=== PATIENT | male | born 1935 | race Caucasian/White ===

== ENCOUNTER 2016-11-28 05:39 | Inpatient (IN) ==
[2016-11-21 10:46] LABS: Partial Thromboplastin Time 24.9 SECS (0-40)
[2016-11-21 10:58] LABS: Apearance,Urine CLEAR (Clear); Bilirubin,Urine Negative (Negative); Blood, Urine Negative (Negative); Glucose,Urine (UA) >=500 mg/dL (Negative); Hyaline Casts,Urine 9 /LPF (0-3); Ketones,Urine Negative (Negative); Nitrite,Urine Negative (Negative); Protein,Urine Negative; RBC,Urine <1 /HPF (0-4); Squamous Epithelial Cell,Urine Occasional /HPF (0-10); Urine Color Yellow (Yellow); Urine Specific Gravity 1.016 (1.001-1.035); Urine Urobilinogen < 2.0 EU/DL (0.2-1.0); WBC,Urine 1 /HPF (0-6)
[2016-11-28] MEDS ORDERED: VANCOMYCIN 1,000 MG VIAL ONE (05:59)
[2016-11-28] MEDS ORDERED: VANCOMYCIN INJ 1,000 MG in SODIUM CHLORIDE 0.9% 250 ML IV ONE (06:00)
[2016-11-28] MEDS ORDERED: ceFAZolin 1,000 MG VIAL ONE (06:00)
[2016-11-28] MEDS ORDERED: SODIUM CHLORIDE 0.9% 50 ML IV ONE (06:00)
[2016-11-28] MEDS: LACTATED RINGERS 1,000 ML IV SCH (06:30)
[2016-11-28] MEDS ORDERED: TRANEXAMIC ACID 1,000 MG/10 ML VIAL IV ONE (06:31)
[2016-11-28] MEDS ORDERED: ONDANSETRON 4 MG/2 ML VIAL ONE ×2 (07:09→08:57)
[2016-11-28] MEDS ORDERED: PROPOFOL 200 MG/20 ML VIAL IV ONE (07:09)
[2016-11-28] MEDS ORDERED: LIDOCAINE 1% 5 ML VIAL ONE (07:09)
[2016-11-28] MEDS ORDERED: NALOXONE 0.4 MG/ML VIAL IV PRN (07:14)
[2016-11-28] MEDS ORDERED: PROMETHAZINE 25 MG/1 ML VIAL IM PRN (07:14)
[2016-11-28] MEDS ORDERED: ONDANSETRON 4 MG/2 ML VIAL IV PRN ×2 (07:14→09:05)
[2016-11-28] MEDS ORDERED: diphenhydrAMINE CAP 25 MG CAPSULE PO PRN (07:14)
[2016-11-28] MEDS ORDERED: BISACODYL 10 MG SUPP RECTAL PRN (07:14)
[2016-11-28] MEDS ORDERED: TEMAZEPAM 7.5 MG CAPSULE PO PRN (07:14)
[2016-11-28] MEDS ORDERED: MAGNESIUM HYDROXIDE SUSP 30 ML UDCUP PO PRN (07:14)
[2016-11-28] MEDS ORDERED: LACTULOSE 20 GM/30 ML UDCUP PO PRN (07:14)
[2016-11-28] MEDS ORDERED: HYDROmorphone 2 MG/1 ML VIAL IV PRN (07:14)
[2016-11-28] MEDS ORDERED: DEXTROSE 50% 25 GM/50 ML VIAL IV PRN (07:18)
[2016-11-28] MEDS ORDERED: GLUCAGON 1 MG VIAL IM PRN (07:18)
[2016-11-28] MEDS ORDERED: ROPIVACAINE 0.5% 30 ML VIAL ONE (08:40)
[2016-11-28] MEDS ORDERED: HYDROmorphone 2 MG/1 ML VIAL ONE (08:57)
[2016-11-28] MEDS ORDERED: SEVOFLURANE 1 UNIT/15 MINUTE INH ONE ×2 (09:00→09:12)
[2016-11-28] MEDS: HYDROmorphone 2 MG/1 ML VIAL IV PRN ×2 (09:05→09:10)
[2016-11-28] MEDS ORDERED: fentaNYL 100 MCG/2 ML VIAL ONE (09:12)
[2016-11-28] MEDS ORDERED: MIDAZOLAM 2 MG/2 ML VIAL ONE (09:12)
[2016-11-28] MEDS ORDERED: LACTATED RINGERS 1,000 ML IV ONE (09:13)
[2016-11-28] MEDS ORDERED: SODIUM CHLORIDE 0.9% 100 ML IV ONE (09:13)
[2016-11-28] MEDS ORDERED: ACETAMINOPHEN 1,000 MG/100 ML VIAL IV ONE (09:13)
[2016-11-28] MEDS ORDERED: ePHEDrine 50 MG/ML AMP ONE (09:13)
[2016-11-28] MEDS: HYDROmorphone PCA 30 MG/30 ML SYRINGE IV SCH (11:10)
[2016-11-28] MEDS: DOCUSATE SODIUM 100 MG CAPSULE PO SCH ×2 (11:46→20:54)
[2016-11-28] MEDS: OMEGA PO SCH ×2 (11:48→20:54)
[2016-11-28] MEDS: INSULIN NPH/REGULAR 70/30 100 UNIT/ML SUBCUT SCH (11:48)
[2016-11-28] MEDS: FATTY ACIDS PO SCH ×2 (11:48→20:54)
[2016-11-28] MEDS: Magnesium Oxide [Magnesium] 250 MG PO SCH ×2 (11:48→20:51)
[2016-11-28] MEDS: CYANOCOBALAMIN 500 MCG TABLET PO SCH ×2 (11:49→20:49)
[2016-11-28] MEDS: LISINOPRIL 20 MG TABLET PO SCH ×2 (11:57→20:50)
[2016-11-28] MEDS: INSULIN REGULAR 100 UNIT/ML SUBCUT SCH ×4 (12:15→20:56)
[2016-11-28] MEDS: ceFAZolin 2,000 MG in PREMIX 1 EACH IV SCH ×2 (15:43→23:31)
[2016-11-28] MEDS: FONDAPARINUX 2.5 MG/0.5 ML SYRINGE SUBCUT SCH (17:18)
[2016-11-28] MEDS: INSULIN ASPART PROTAMINE/ASPART 70/30 100 UNIT/ML SUBCUT SCH (19:24)
[2016-11-28] MEDS: ATORVASTATIN 10 MG TABLET PO SCH (20:50)
[2016-11-29 03:40] LABS: Basophils # 0.1 10*3/uL (0.0-0.2); Basophils % 0.6 % (0.0-0.8); Eosinophils % 0.4 % (0.00-10.9); Hematocrit 27.5 VOL% (42.0-52.0); Hemoglobin 8.4 GM/DL (14.0-18.0); Immature Granulocytes % 0.4 %; Immature Granulocytes Absolute 0.04 #; Lymphocytes # 2.1 10*3/uL (1.4-4.0); Lymphocytes % 19.4 % (21.2-54.2); Mean Corpuscular HGB Conc 30.5 GM/DL (32-36); Mean Corpuscular Hemoglobin 25 PG (27-34); Mean Corpuscular Volume 80.2 FL (87-102); Mean Platelet Volume 11.8 FL (9.6-12.0); Monocytes # 1.4 10*3/uL (0.11-0.8); Monocytes % 12.7 % (1.7-12.7); Neutrophils # 7.3 10*3/uL (1.4-7.4); Neutrophils % 66.5 % (38.7-73.9); Platelet Count 206 T/CUMM (130-400); Red Blood Count 3.43 MC/CUMM (3.8-5.5); Red Cell Distribution Width 16.3 % (9.3-17.3); White Blood Count 10.9 T/CUMM (4-12)
[2016-11-29 04:00] LABS: Calcium 8.1 MG/DL (8.5-10.1); Osmolality,Calculated 271.1 MOS/KG (273-304)
[2016-11-29] MEDS: HYDROmorphone PCA 30 MG/30 ML SYRINGE IV SCH (08:59)
[2016-11-29] MEDS: INSULIN REGULAR 100 UNIT/ML SUBCUT SCH ×4 (09:09→20:28)
[2016-11-29] MEDS: CYANOCOBALAMIN 500 MCG TABLET PO SCH ×2 (09:56→20:28)
[2016-11-29] MEDS: LISINOPRIL 20 MG TABLET PO SCH ×2 (09:56→20:28)
[2016-11-29] MEDS: DOCUSATE SODIUM 100 MG CAPSULE PO SCH ×2 (09:56→20:28)
[2016-11-29] MEDS: INSULIN NPH/REGULAR 70/30 100 UNIT/ML SUBCUT SCH (09:57)
[2016-11-29] MEDS: OMEGA PO SCH ×2 (10:14→20:47)
[2016-11-29] MEDS: FATTY ACIDS PO SCH ×2 (10:14→20:47)
[2016-11-29] MEDS: Magnesium Oxide [Magnesium] 250 MG PO SCH ×2 (10:14→20:47)
[2016-11-29] MEDS: LACTATED RINGERS 1,000 ML IV SCH (14:46)
[2016-11-29] MEDS: FONDAPARINUX 2.5 MG/0.5 ML SYRINGE SUBCUT SCH (19:13)
[2016-11-29] MEDS: INSULIN ASPART PROTAMINE/ASPART 70/30 100 UNIT/ML SUBCUT SCH (19:14)
[2016-11-29] MEDS: ATORVASTATIN 10 MG TABLET PO SCH (20:28)
[2016-11-30 03:48] LABS: Basophils # 0.1 10*3/uL (0.0-0.2); Basophils % 0.5 % (0.0-0.8); Hematocrit 27.1 VOL% (42.0-52.0); Hemoglobin 8.3 GM/DL (14.0-18.0); Immature Granulocytes % 0.7 %; Immature Granulocytes Absolute 0.09 #; Lymphocytes % 15.4 % (21.2-54.2); Mean Corpuscular HGB Conc 30.6 GM/DL (32-36); Mean Corpuscular Hemoglobin 24 PG (27-34); Mean Corpuscular Volume 79.7 FL (87-102); Monocytes # 1.8 10*3/uL (0.11-0.8); Monocytes % 13.7 % (1.7-12.7); Neutrophils # 9.1 10*3/uL (1.4-7.4); Neutrophils % 69.7 % (38.7-73.9); Platelet Count 201 T/CUMM (130-400); Red Cell Distribution Width 16.4 % (9.3-17.3); White Blood Count 13.1 T/CUMM (4-12)
[2016-11-30] MEDS: INSULIN REGULAR 100 UNIT/ML SUBCUT SCH ×3 (07:30→16:30)
[2016-11-30] MEDS: INSULIN NPH/REGULAR 70/30 100 UNIT/ML SUBCUT SCH (08:30)
[2016-11-30] MEDS: LISINOPRIL 20 MG TABLET PO SCH ×2 (09:07→21:18)
[2016-11-30] MEDS: CYANOCOBALAMIN 500 MCG TABLET PO SCH ×2 (09:07→21:17)
[2016-11-30] MEDS: DOCUSATE SODIUM 100 MG CAPSULE PO SCH ×2 (09:08→21:17)
[2016-11-30] MEDS: Magnesium Oxide [Magnesium] 250 MG PO SCH ×2 (11:37→21:25)
[2016-11-30] MEDS: FATTY ACIDS PO SCH ×2 (11:38→21:25)
[2016-11-30] MEDS: OMEGA PO SCH ×2 (11:38→21:25)
[2016-11-30] MEDS: FONDAPARINUX 2.5 MG/0.5 ML SYRINGE SUBCUT SCH (18:20)
[2016-11-30] MEDS: ATORVASTATIN 10 MG TABLET PO SCH (21:17)
[2016-11-30] MEDS: INSULIN ASPART PROTAMINE/ASPART 70/30 100 UNIT/ML SUBCUT SCH (21:26)
[2016-12-01] MEDS: INSULIN REGULAR 100 UNIT/ML SUBCUT SCH ×4 (04:05→18:03)
[2016-12-01 05:02] LABS: Basophils # 0.1 10*3/uL (0.0-0.2); Basophils % 0.6 % (0.0-0.8); Eosinophils # 0.2 10*3/uL (0.0-0.87); Eosinophils % 1.6 % (0.00-10.9); Hematocrit 25.2 VOL% (42.0-52.0); Hemoglobin 7.6 GM/DL (14.0-18.0); Immature Granulocytes % 0.5 %; Immature Granulocytes Absolute 0.05 #; Lymphocytes # 1.7 10*3/uL (1.4-4.0); Lymphocytes % 16.8 % (21.2-54.2); Mean Corpuscular HGB Conc 30.2 GM/DL (32-36); Mean Corpuscular Hemoglobin 24 PG (27-34); Mean Corpuscular Volume 80.3 FL (87-102); Mean Platelet Volume 12.1 FL (9.6-12.0); Monocytes # 1.1 10*3/uL (0.11-0.8); Monocytes % 10.5 % (1.7-12.7); Platelet Count 206 T/CUMM (130-400); Red Blood Count 3.14 MC/CUMM (3.8-5.5); Red Cell Distribution Width 16.7 % (9.3-17.3)
[2016-12-01] MEDS: DOCUSATE SODIUM 100 MG CAPSULE PO SCH ×2 (08:16→20:23)
[2016-12-01] MEDS: LISINOPRIL 20 MG TABLET PO SCH ×2 (08:16→20:23)
[2016-12-01] MEDS: CYANOCOBALAMIN 500 MCG TABLET PO SCH ×2 (08:17→20:23)
[2016-12-01] MEDS ORDERED: SODIUM CHLORIDE 0.9% 250 ML IV PRN (08:18)
[2016-12-01] MEDS: INSULIN NPH/REGULAR 70/30 100 UNIT/ML SUBCUT SCH (08:20)
[2016-12-01] MEDS: Magnesium Oxide [Magnesium] 250 MG PO SCH ×2 (09:34→20:32)
[2016-12-01] MEDS: OMEGA PO SCH ×2 (09:35→20:33)
[2016-12-01] MEDS: FATTY ACIDS PO SCH ×2 (09:35→20:33)
[2016-12-01] MEDS: FONDAPARINUX 2.5 MG/0.5 ML SYRINGE SUBCUT SCH (18:05)
[2016-12-01] MEDS: INSULIN ASPART PROTAMINE/ASPART 70/30 100 UNIT/ML SUBCUT SCH (20:21)
[2016-12-01] MEDS: ATORVASTATIN 10 MG TABLET PO SCH (20:22)
[2016-12-02] MEDS: INSULIN REGULAR 100 UNIT/ML SUBCUT SCH ×3 (03:14→12:00)
[2016-12-02 05:33] LABS: Basophils # 0.1 10*3/uL (0.0-0.2); Basophils % 0.7 % (0.0-0.8); Eosinophils # 0.3 10*3/uL (0.0-0.87); Eosinophils % 3.3 % (0.00-10.9); Hematocrit 30.1 VOL% (42.0-52.0); Hemoglobin 9.7 GM/DL (14.0-18.0); Immature Granulocytes % 0.7 %; Immature Granulocytes Absolute 0.07 #; Lymphocytes # 2.1 10*3/uL (1.4-4.0); Lymphocytes % 22.3 % (21.2-54.2); Mean Corpuscular HGB Conc 32.2 GM/DL (32-36); Mean Corpuscular Hemoglobin 26 PG (27-34); Mean Corpuscular Volume 80.3 FL (87-102); Mean Platelet Volume 12.1 FL (9.6-12.0); Monocytes # 1.2 10*3/uL (0.11-0.8); Monocytes % 12.2 % (1.7-12.7); Neutrophils # 5.8 10*3/uL (1.4-7.4); Neutrophils % 60.8 % (38.7-73.9); Platelet Count 211 T/CUMM (130-400); Red Blood Count 3.75 MC/CUMM (3.8-5.5); Red Cell Distribution Width 16.4 % (9.3-17.3); White Blood Count 9.6 T/CUMM (4-12)
[2016-12-02] MEDS: CYANOCOBALAMIN 500 MCG TABLET PO SCH (09:45)
[2016-12-02] MEDS: LISINOPRIL 20 MG TABLET PO SCH (09:46)
[2016-12-02] MEDS: DOCUSATE SODIUM 100 MG CAPSULE PO SCH (09:46)
[2016-12-02] MEDS: INSULIN NPH/REGULAR 70/30 100 UNIT/ML SUBCUT SCH (09:49)
[2016-12-02] MEDS: OMEGA PO SCH (09:50)
[2016-12-02] MEDS: Magnesium Oxide [Magnesium] 250 MG PO SCH (09:50)
[2016-12-02] MEDS: FATTY ACIDS PO SCH (09:50)
[2016-12-02 11:10] VITALS: BP 145/76
== END 2016-12-02 15:55 | disposition swing bed (61) | DRG 470 ==
LOC: N.OR 05:39 → N.SDSINP 06:16 → N.3E 07:15
PROVIDERS: ADMIT Orthopaedic Surgery; ATTEND Orthopaedic Surgery